=== PATIENT | female | born 1995 | race American Indian/Alaskan Native ===

== ENCOUNTER 2020-12-02 12:09 | Emergency (ER) | payer SELFPAY ==
[2020-12-02 12:56] VITALS: BP 101/79
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
== END 2020-12-02 14:05 | disposition home or self-care (01) ==
LOC: ED 12:09
DX: M62.838 Other muscle spasm (principal); M79.10 Myalgia, unspecified site; Z79.899 Other long term (current) drug therapy; V49.49XA Driver injured in collision with other motor vehicles in traffic accident, initial encounter; Y93.89 Activity, other specified; Y92.488 Other paved roadways as the place of occurrence of the external cause; Y99.8 Other external cause status
CPT/HCPCS: 99282